=== PATIENT | female | born 1960 | race Caucasian/White ===

== ENCOUNTER 2019-01-31 10:39 | Inpatient (IN) | payer OTHER ==
[~2019-01-31] VITALS: Ht 165.1 cm; Wt 44.5 kg
[~2019-01-31 10:39] MED LIST: ALBUTEROL INHAL17 GM IH; ASPIRIN81 M2 PO; AZITHROMYCIN 2250 MG PO; CALCIUM; CHLORTHALIDONE25 MG PO; LEXAPRO20 MG PO; LOPRESSOR50 PO; MEDROLDOSEPACK PO; SYNTHROID125 MC1 PO; TESSALON PERLE100 MG PO; TRAZODONE HCL50 MG PO; VISTARIL 25 MG25 M1 PO
[2019-02-01 16:27] VITALS: BP 137/62
[2019-02-01 20:01] VITALS: BP 146/78
[2019-02-01 23:01] VITALS: BP 130/59
[2019-02-02] VITALS (24 sets, daily range): BP systolic 125–158; BP diastolic 50–90
[2019-02-02 04:58] LABS: HEMATOCRIT 23.4 % (37.0-47.0); MCH 30.6 pg (26.0-34.0); MCHC 34.1 g/dL (28.0-37.0); MCV 89.7 fL (80.0-100.0); MPV 6.7 fl. (7.2-11.1); NUCLEATED RBCS 0 /100WBC; PLATELET COUNT* 400 thou/uL (150-400); RDW-CV 16.3 % (10.5-14.5); WBC 8.9 thou/uL (4.0-11.0)
[2019-02-02 05:13] LABS: ALBUMIN 1.8 g/dL (3.4-5.0); CALCIUM 8.4 mg/dL (8.5-10.1); CREATININE 0.6 mg/dL (0.6-1.3); MAGNESIUM 1.7 mg/dL (1.8-2.4); POTASSIUM 3.6 mmol/L (3.5-5.1); TOTAL BILIRUBIN 0.9 mg/dL (<0.1-1.0); TOTAL PROTEIN 5.7 g/dL (6.4-8.2)
[2019-02-02 06:43] LABS: ABSOLUTE EOSINOPHILS 0.4 thou/uL (0.0-0.7); ABSOLUTE LYMPHOCYTES 1.2 thou/uL (0.8-5.3); ABSOLUTE MONOCYTES 0.1 thou/uL (0.0-1.2); ABSOLUTE NEUTROPHILS 7.2 thou/uL (1.6-8.1); ATYPICAL LYMPHS 2 %; METAMYELOCYTES 1 %; PLATELET ESTIMATE ADEQUATE
[2019-02-03] VITALS (28 sets, daily range): BP systolic 131–161; BP diastolic 60–94
[2019-02-03 05:13] LABS: HEMATOCRIT 22.7 % (37.0-47.0); HEMOGLOBIN 7.8 gm/dL (12.0-15.0); MCH 30.7 pg (26.0-34.0); MCHC 34.3 g/dL (28.0-37.0); MCV 89.4 fL (80.0-100.0); MPV 6.7 fl. (7.2-11.1); RBC 2.54 mil/uL (4.20-5.00); RDW-CV 16.4 % (10.5-14.5); WBC 8.8 thou/uL (4.0-11.0)
[2019-02-03 05:24] LABS: CALCIUM 8.3 mg/dL (8.5-10.1); CREATININE 0.6 mg/dL (0.6-1.3); MAGNESIUM 1.6 mg/dL (1.8-2.4); POTASSIUM 3.2 mmol/L (3.5-5.1)
--- NOTE | 2019-02-03 10:04 | CON ---
[address] [address] CONSULTATION Name: JACINDA NGO Room: [address] IN M.R.#: [id number] Admission: 02/01/19 Attend Phys: Valentin Howe MD Discharge: Date of : 58 Report #: [id number] THIS REPORT FOR: //name// CC: Ruddy Howe DATE OF SERVICE: 02/02/2019 REQUESTING PHYSICIAN: Dr. Howe. REASON FOR CONSULTATION: Ventilator management on chronic vent. DISCUSSION: The patient is a 58-year-old woman who was readmitted to [facility] yesterday. She had been here last month. She has had a cardiopulmonary arrest. Significant encephalopathy where she was found to have a significant stroke. She was intubated when she was here previously. Was not able to be safely extubated. Due to the lack of ENT coverage at this facility, she subsequently was transferred out to [facility] and that was on 01/23/2019. While she was there, was reevaluated. She subsequently did have a tracheostomy placed. This was on 01/30/2019. She was then transferred back to [facility] yesterday. No PEG was placed. Apparently, intra-abdominal air had been noted. Etiology was not clear, but did not feel that she had a surgical abdomen. No surgery was done. She has been maintained on TPN. Paper records were sent with her. I am unable to access the hospital notes through [facility] at [facility]. Those pulmonary notes do indicate that some weaning trials were underway. However, I am not able to access how long those trials were nor how frequently they were. Blood gases which were noted, though the last one was at least several days ago, did not reveal any hypercapnia and she was oxygenating adequately. She was originally admitted at [facility] on 01/09/2019 with yav-oo-xssxutub cardiopulmonary arrest. She was known to be a smoker, also has a history of alcohol abuse. She probably had some COPD. She did go through the cooling protocol when she was admitted here. After the initial event, she was noted to be fairly encephalopathic. Was not very awake. It was not thought it was safe to extubate her. She also had significant CVA. It is not clear if this was related to her acute hypoxic injury or not. Also, had right groin hematoma. Had a right femoral line in that earlier on. She did require some blood transfusions. Also, had issues with various infections, right groin urinary tract. MEDICATIONS: At this time, her current medications [place] [address] CONSULTATION Name: JACINDA NGO Room: [address] IN M.R.#: [id number] Admission: 02/01/19 Attend Phys: Valentin Howe MD Discharge: Date of : 58 Report #: [id number] for supplementation per protocol, Protonix, Synthroid, metoprolol q. 6h., TPN, Lipitor if able to give by tube, DuoNeb q.i.d. and p.r.n. Ativan. She is on no continuous sedations. SOCIAL HISTORY: History of smoking. FAMILY HISTORY: Unable to obtain any family history given her condition. REVIEW OF SYSTEMS: Unable to obtain from the patient given her condition. PHYSICAL EXAMINATION: GENERAL APPEARANCE: An obese woman. She is in the ICU, has a tracheostomy tube in place and is on the ventilator. Her eyes are open. Not consistently tracking. Would not follow any commands for me. HEENT: Her right hand is grasping a tube. Some intermittent movement of her left arm. Mucous membranes look moist. Tracheostomy tube is in place. HEART: Regular. She is mildly tachycardic. LUNGS: Sounds are fairly clear. Excursion is equal. ABDOMEN: Obese, but soft. Does not appear to have any guarding or rebound. No definite hepatosplenomegaly. Does have evidence of a resolving hematoma over the right groin area. This also involves the upper right thigh area. EXTREMITIES: She has trace to 1+ edema. LABORATORY AND X-RAY FINDINGS: No recent blood gases done here at [facility]. Those were reviewed from [facility]. No hypercapnia. White blood cell count this morning 8900, hemoglobin 8.0, hematocrit 23.4, platelets 400,000. Her chemistry, BUN is 22, creatinine 0.6, potassium 3.6. Albumin 1.8. IMPRESSION: 1. Respiratory failure. Intubated initially due to aiq-nx-slgfnvrj cardiac arrest. Significant encephalopathy and cerebrovascular accident. Was not weanable and now status post trach placement. It is not clear to me how well her weaning trials have been going recently at [facility]. 2. Status post cardiopulmonary arrest. 3. Right groin hematoma. I believe it was related to art line which was placed there at the time of her initial admission. 4. Obesity. 5. Anemia, which has intermittently required transfusions. 6. Prior urinary tract infections. 7. Free intra-abdominal air. Clinically, does not have a surgical abdomen. 8. Overall long-term prognosis appears guarded. RECOMMENDATIONS: 1. We will resume weaning trials. We will push for an hour daily and assess tolerance. 2. Continue the DuoNeb. [address] [address] CONSULTATION Name: JACINDA NGO Room: [facility] IN .R.#: [id number] Admission: 02/01/19 Attend Phys: Valentin Howe MD Discharge: Date of : 58 Report #: [id number] 3. I will need to have a feeding addressed. Has no NG or OG tube in place. Consider Dobbhoff if surgery feels it is safe to resume enteral feedings. At some point, may need PEG tube. 4. Therapy as tolerated. <ELECTRONICALLY SIGNED> By: Viola Villalobos MD 02/03/19 1004 1134 [id number] Villalobos MD /nt
[2019-02-04] VITALS (29 sets, daily range): BP systolic 120–162; BP diastolic 57–91
[2019-02-04 05:11] LABS: HEMATOCRIT 22.6 % (37.0-47.0); HEMOGLOBIN 7.8 gm/dL (12.0-15.0); MCHC 34.5 g/dL (28.0-37.0); MCV 89.8 fL (80.0-100.0); MPV 6.6 fl. (7.2-11.1); RBC 2.52 mil/uL (4.20-5.00); RDW-CV 16.8 % (10.5-14.5); WBC 8.9 thou/uL (4.0-11.0)
[2019-02-04 05:44] LABS: CALCIUM 8.3 mg/dL (8.5-10.1); CREATININE 0.7 mg/dL (0.6-1.3); MAGNESIUM 1.8 mg/dL (1.8-2.4); POTASSIUM 3.8 mmol/L (3.5-5.1)
[2019-02-04 10:10] LABS: MAGNESIUM 1.5 mg/dL (1.8-2.4); PHOSPHORUS* 3.4 mg/dL (2.5-4.9); TROPONIN-I LEVEL <0.06 ng/mL (<0.06)
[2019-02-04 17:12] LABS: MAGNESIUM 1.7 mg/dL (1.8-2.4); POTASSIUM 3.5 mmol/L (3.5-5.1)
[2019-02-05] VITALS (32 sets, daily range): BP systolic 122–163; BP diastolic 62–89
[2019-02-05 03:25] LABS: HEMATOCRIT 24.8 % (37.0-47.0); HEMOGLOBIN 8.4 gm/dL (12.0-15.0); MCH 30.3 pg (26.0-34.0); MCV 89.2 fL (80.0-100.0); MPV 6.4 fl. (7.2-11.1); RBC 2.78 mil/uL (4.20-5.00); RDW-CV 16.6 % (10.5-14.5); WBC 9.7 thou/uL (4.0-11.0)
[2019-02-05 03:41] LABS: CALCIUM 8.5 mg/dL (8.5-10.1); CREATININE 0.6 mg/dL (0.6-1.3); MAGNESIUM 1.7 mg/dL (1.8-2.4); POTASSIUM 4.1 mmol/L (3.5-5.1)
--- NOTE | 2019-02-05 12:43 | EKG ---
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 : 1960 Requested By: William Andersen Order Number: [id number] Reading MD: Paul Hernandez Measurements Intervals [place] Rate: 81 P: 81 VA: 153 QRS: 64 QRSD: 101 T: 70 QT: 354 QTc: 411 Interpretive Statements Sinus rhythm Multiple premature complexes, vent & supraven Low voltage, precordial leads RSR' in V1 or V2, probably normal variant Nonspecific T abnormalities, anterior leads Compared to ECG 01/20/2019 09:08:12 T-wave abnormality now present Electronically Signed On 02-05-2019 12:42:49 CDT by Paul Hernandez [email or web address] <ELECTRONICALLY SIGNED> By: Paul Hernandez MD, FAC 02/05/19 1242 0927 0927 Paul Hernandez MD, FAC /EPI
--- NOTE | 2019-02-05 17:34 | EKG ---
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 : 1960 Requested By: Valentin Howe Order Number: [id number] Reading MD: Tino Quarles Measurements Intervals [place] Rate: 145 P: 53 IN: 164 QRS: 46 QRSD: 101 T: 62 QT: 326 QTc: 507 Interpretive Statements Atrial fibrillation Paired ventricular premature complexes Low voltage, precordial leads RSR' in V1 or V2, right VCD or RVH Prolonged QT interval Compared to ECG 01/20/2019 09:08:12 Ventricular premature complex(es) now present Prolonged QT interval now present Sinus rhythm no longer present Electronically Signed On 02-05-2019 17:34:33 CDT by Tino Quarles [email or web address] <ELECTRONICALLY SIGNED> By: Tino Quarles MD, FAC 02/05/19 1734 0954 0954 Tino Quarles MD, [facility] /EPI
[2019-02-06] VITALS (25 sets, daily range): BP systolic 123–163; BP diastolic 62–112
[2019-02-06 04:37] LABS: CALCIUM 8.2 mg/dL (8.5-10.1); CREATININE 0.6 mg/dL (0.6-1.3); MAGNESIUM 1.5 mg/dL (1.8-2.4); POTASSIUM 3.6 mmol/L (3.5-5.1)
[2019-02-07] VITALS (22 sets, daily range): BP systolic 132–166; BP diastolic 57–89
[2019-02-07 05:28] LABS: HEMATOCRIT 25.4 % (37.0-47.0); HEMOGLOBIN 8.7 gm/dL (12.0-15.0); MCH 30.3 pg (26.0-34.0); MCHC 34.3 g/dL (28.0-37.0); MCV 88.5 fL (80.0-100.0); MPV 6.8 fl. (7.2-11.1); RBC 2.87 mil/uL (4.20-5.00); RDW-CV 16.9 % (10.5-14.5)
[2019-02-07 06:04] LABS: CALCIUM 8.4 mg/dL (8.5-10.1); CREATININE 0.6 mg/dL (0.6-1.3); MAGNESIUM 1.5 mg/dL (1.8-2.4); POTASSIUM 3.5 mmol/L (3.5-5.1)
[2019-02-07 15:33] LABS: MAGNESIUM 1.7 mg/dL (1.8-2.4); PHOSPHORUS* 3.9 mg/dL (2.5-4.9); POTASSIUM 3.5 mmol/L (3.5-5.1)
[2019-02-07 21:22] LABS: MAGNESIUM 1.9 mg/dL (1.8-2.4); POTASSIUM 3.8 mmol/L (3.5-5.1)
[2019-02-08] VITALS (17 sets, daily range): BP systolic 114–149; BP diastolic 45–77
[2019-02-08 05:55] LABS: CALCIUM 8.4 mg/dL (8.5-10.1); CREATININE 0.6 mg/dL (0.6-1.3); MAGNESIUM 1.6 mg/dL (1.8-2.4); POTASSIUM 3.7 mmol/L (3.5-5.1)
[2019-02-08 15:43] LABS: MAGNESIUM 1.6 mg/dL (1.8-2.4); POTASSIUM 3.5 mmol/L (3.5-5.1)
[2019-02-09] VITALS (24 sets, daily range): BP systolic 118–165; BP diastolic 55–96
[2019-02-09 04:16] LABS: HEMOGLOBIN 8.8 gm/dL (12.0-15.0); MCHC 35.2 g/dL (28.0-37.0); MCV 88.2 fL (80.0-100.0); MPV 6.6 fl. (7.2-11.1); RBC 2.83 mil/uL (4.20-5.00); RDW-CV 16.7 % (10.5-14.5); WBC 8.8 thou/uL (4.0-11.0)
[2019-02-09 04:31] LABS: ALBUMIN 2.3 g/dL (3.4-5.0); APTT 26.2 Seconds (25.0-31.3); CALCIUM 8.4 mg/dL (8.5-10.1); CREATININE 0.6 mg/dL (0.6-1.3); MAGNESIUM 1.8 mg/dL (1.8-2.4); PHOSPHORUS* 3.6 mg/dL (2.5-4.9); PROTIME 10.4 Seconds (9.20-11.50); TOTAL BILIRUBIN 0.9 mg/dL (<0.1-1.0); TOTAL PROTEIN 6.2 g/dL (6.4-8.2)
[2019-02-10 04:15] LABS: HEMATOCRIT 26.1 % (37.0-47.0); HEMOGLOBIN 8.9 gm/dL (12.0-15.0); MCHC 34.2 g/dL (28.0-37.0); MCV 87.8 fL (80.0-100.0); MPV 6.8 fl. (7.2-11.1); RBC 2.97 mil/uL (4.20-5.00); RDW-CV 16.5 % (10.5-14.5); WBC 11.3 thou/uL (4.0-11.0)
[2019-02-10 04:30] VITALS: BP 151/77
[2019-02-10 04:49] LABS: CALCIUM 8.4 mg/dL (8.5-10.1); CREATININE 0.7 mg/dL (0.6-1.3); MAGNESIUM 1.6 mg/dL (1.8-2.4); POTASSIUM 3.6 mmol/L (3.5-5.1)
--- NOTE | 2019-02-10 20:52 | OP ---
[facility] [address] [place] [address] OPERATIVE REPORT Name: JACINDA NGO Room: [address] IN .R.#: [id number] Admission: 02/01/19 Attend Phys: Valentin Howe MD Discharge: Date of : 58 Report #: [id number] THIS REPORT FOR: //name// CC: Ruddy Howe DATE OF SERVICE: 02/09/2019 PREOPERATIVE DIAGNOSIS: Need for enteral access. POSTOPERATIVE DIAGNOSIS: Need for enteral access. PROCEDURE: Laparoscopic converted to open gastrostomy. SURGEON: Jones Pride M.D. ANESTHESIA: General. ESTIMATED BLOOD LOSS: Minimal. SPECIMENS: None. DESCRIPTION OF PROCEDURE: After informed consent was obtained, the patient was brought to the operating room, placed supine. SCDs were placed and working. Preoperative antibiotics were administered, general anesthesia was induced. The abdomen was prepped and draped in the usual sterile fashion. I began by inserting a 5 mm scope under direct vision in the left upper quadrant. Pneumoperitoneum was established. A supraumbilical 8 mm trocar was placed, and in the right upper quadrant, 5 mm port was placed. I was able to cannulate the stomach; however, the wire would not thread. I therefore elected to perform open gastrostomy. Epigastric incision was made. Cautery dissection was made down through the fascia. The stomach was identified. The gastrostomy tube was then brought in through the left upper quadrant of the abdomen. I then made a gastrostomy. A 16-Latvian gastrostomy was placed into the gastrotomy. It was secured with a T-bar from the laparoscopic kit. There was a defect in the back wall of the stomach measuring approximately 2 mm. This was closed with interrupted 3-0 Vicryl in an interrupted fashion and imbricated with 3-0 silk pop offs. The gastrostomy was then brought up to the abdominal wall. The T-bar was then fastened down and the balloon was inflated. The fascia was then closed with a running 0 PDS in running fashion. Skin was [place] [address] OPERATIVE REPORT Name: JACINDA NGO Room: [address] IN [facility]#: [id number] Admission: 02/01/19 Attend Phys: Valentin Howe MD Discharge: Date of : 58 Report #: [id number] dressings were applied. COMPLICATIONS: None. DISPOSITION: The patient was taken to recovery in satisfactory condition. <ELECTRONICALLY SIGNED> By: Jones Pride MD 02/10/192051 1728 10Jostephanie Pride MD /nt
[2019-02-11] VITALS (64 sets, daily range): BP systolic 82–155; BP diastolic 38–84
[2019-02-11 00:47] LABS: URINE BILIRUBIN NEGATIVE (Negative); URINE BLOOD NEGATIVE (Negative); URINE CLARITY CLEAR; URINE COLOR YELLOW; URINE GLUCOSE-RANDOM NEGATIVE (Negative); URINE KETONES NEGATIVE (Negative); URINE LEUKOCYTES NEGATIVE (Negative); URINE NITRITE NEGATIVE (Negative); URINE PROTEIN TRACE (Negative); URINE SPECIFIC GRAVITY 1.015 (1.005-1.030); URINE UROBILINOGEN 0.2 E.U./dl (0.2-1.0)
[2019-02-11 10:27] LABS: HEMOGLOBIN 8.9 gm/dL (12.0-15.0); MCH 30.1 pg (26.0-34.0); MCHC 34.2 g/dL (28.0-37.0); MCV 88.1 fL (80.0-100.0); NUCLEATED RBCS 0 /100WBC; PLATELET COUNT* 367 thou/uL (150-400); RBC 2.95 mil/uL (4.20-5.00); RDW-CV 16.2 % (10.5-14.5); WBC 11.5 thou/uL (4.0-11.0)
[2019-02-11 10:42] LABS: ALBUMIN 2.2 g/dL (3.4-5.0); CALCIUM 8.2 mg/dL (8.5-10.1); CREATININE 0.7 mg/dL (0.6-1.3); POTASSIUM 3.4 mmol/L (3.5-5.1); TOTAL BILIRUBIN 0.8 mg/dL (<0.1-1.0); TOTAL PROTEIN 6.4 g/dL (6.4-8.2)
[2019-02-11 11:18] LABS: ABSOLUTE LYMPHOCYTES 1.7 thou/uL (0.8-5.3); ABSOLUTE MONOCYTES 0.6 thou/uL (0.0-1.2); ABSOLUTE NEUTROPHILS 8.2 thou/uL (1.6-8.1); PLATELET ESTIMATE ADEQUATE
[2019-02-11 11:19] LABS: ANISOCYTOSIS Occasional
[2019-02-11 11:43] LABS: ESR (SEDRATE) 112 mm/hr (0-30)
--- NOTE | 2019-02-11 12:21 | CON ---
[address] [address] CONSULTATION Name: JACINDA NGO Room: [address] IN .R.#: [id number] Admission: 02/01/19 Attend Phys: Valentin Howe MD Discharge: Date of : 58 Report #: [id number] THIS REPORT FOR: //name// CC: Ruddy Howe CARDIOLOGY CONSULTATION INDICATION: Cardiac arrhythmia. HISTORY OF PRESENT ILLNESS: The patient is a 58-year-old white female who has had a prolonged hospital course. She was originally admitted to this institution on 01/09/2019 with an ydm-hl-qadmyxkv cardiac arrest. The patient was found to be in ventricular fibrillation. She was resuscitated in the field and brought to the hospital. She underwent cooling protocol. She had very slow progression, with minimal improvement. She was noted by CT scan of the head several days later to have had a right-sided stroke. During that initial hospitalization here at [facility], she did have elevation of her troponin to approximately 17, consistent with a non-ST elevation myocardial infarction. She has not undergone further cardiac evaluation, with the exception of an echocardiogram that showed an ejection fraction of 70%. She also developed some paroxysmal atrial fibrillation during that initial hospitalization and was placed on sotalol, with prompt resolution of her arrhythmia. After a prolonged hospitalization here, she was transferred to [facility] on 01/23/2019. At that hospital, she underwent tracheostomy placement for prolonged ventilation. The patient was returned to our hospital on 02/01/2019. She has had a PEG tube placed here for feeding. She is tolerating tube feedings. Presently, she appears to be awake and alert. She answers simple questions a with head nod. She does not follow commands very well. She remains on the ventilator. During her hospitalization at outside hospital, sotalol was discontinued in favor of metoprolol. She is now having some premature atrial contractions and occasional episodes of nonsustained supraventricular tachycardia. She remains hemodynamically stable. PAST MEDICAL HISTORY: 1. Yrb-gy-moxxnmjm arrest, as outlined above. 2. Status post tracheostomy and PEG tube placement for long-term care. 3. Non-ST elevation myocardial infarction. 4. Echocardiogram that shows EF of 70%. 5. Paroxysmal atrial fibrillation. 6. Hypertension. 7. Hypothyroidism. 8. History of hyponatremia. 9. History of alcoholism. FAMILY HISTORY: [place] [address] CONSULTATION Name: JACINDA NGO Room: [address]#: [id number] Admission: 02/01/19 Attend Phys: Valentin Howe MD Discharge: Date of : 58 Report #: [id number] REVIEW OF SYSTEMS: Not obtainable. PHYSICAL EXAMINATION: VITAL SIGNS: Appear stable. Blood pressure 137/72 and heart rate 102, sinus rhythm with PACs. HEENT: Head is normocephalic, atraumatic. Extraocular muscles intact. Mucous membranes are moist. NECK: Examination of the neck shows tracheostomy in place. Neck is thick. CHEST: Clear anteriorly. CARDIAC EXAMINATION: Regular rhythm, without gallop or murmur. ABDOMEN: Examination of the abdomen reveals positive bowel sounds. The abdomen is soft. EXTREMITIES: Examination of the extremities shows trace edema. LABORATORY DATA: Most recent EKG shows sinus rhythm with premature ventricular contractions. There is an incomplete right bundle branch block. There are no acute ST or T-wave abnormalities. IMPRESSION AND RECOMMENDATIONS: 1. Atrial arrhythmias, presently stable. I am switching her back to sotalol. We would recommend long-term anticoagulation with Eliquis 5 mg b.i.d. as she does have a history of paroxysmal atrial fibrillation. 2. Recent nrr-PU-wzptzzatw myocardial infarction. At this point, further workup has not been obtained, with the exception of an echocardiogram. If she were to regain significant clinical stability, would consider possibly doing outpatient stress testing. That would be obviously further down the road. 3. Underlying coronary artery disease, presently stable. Continue conservative management at this point in time. 4. History of cerebrovascular accident. Recommend anticoagulation as her CHADS score is at least 4. 5. Chronic respiratory failure, presently on a ventilator with tracheostomy in place. Weaning per Pulmonology. 6. Fvztf-mk-yhzikds renal insufficiency, per primary physician. <ELECTRONICALLY SIGNED> By: Tino Quarles MD, FACC 02/11/19 1221 1324 0039Tino Quarles MD, FACC /nt
[2019-02-12] VITALS (49 sets, daily range): BP systolic 111–157; BP diastolic 44–95
[2019-02-13] VITALS (19 sets, daily range): BP systolic 106–149; BP diastolic 53–75
[2019-02-13 05:20] LABS: HEMATOCRIT 25.7 % (37.0-47.0); HEMOGLOBIN 8.9 gm/dL (12.0-15.0); MCH 30.8 pg (26.0-34.0); MCHC 34.7 g/dL (28.0-37.0); MCV 88.8 fL (80.0-100.0); RBC 2.89 mil/uL (4.20-5.00); RDW-CV 16.3 % (10.5-14.5)
[2019-02-13 05:45] LABS: ALBUMIN 2.3 g/dL (3.4-5.0); CALCIUM 8.1 mg/dL (8.5-10.1); CREATININE 0.8 mg/dL (0.6-1.3); MAGNESIUM 1.2 mg/dL (1.8-2.4); TOTAL BILIRUBIN 0.7 mg/dL (<0.1-1.0); TOTAL PROTEIN 6.5 g/dL (6.4-8.2)
[2019-02-13 05:48] LABS: POTASSIUM 3.4 mmol/L (3.5-5.1)
[2019-02-13 16:10] LABS: MAGNESIUM 2.8 mg/dL (1.8-2.4); POTASSIUM 3.6 mmol/L (3.5-5.1)
[2019-02-14] VITALS (19 sets, daily range): BP systolic 99–151; BP diastolic 42–75
[2019-02-14 04:48] LABS: HEMATOCRIT 24.9 % (37.0-47.0); HEMOGLOBIN 8.6 gm/dL (12.0-15.0); MCH 30.6 pg (26.0-34.0); MCHC 34.4 g/dL (28.0-37.0); MCV 88.9 fL (80.0-100.0); MPV 7.1 fl. (7.2-11.1); RBC 2.8 mil/uL (4.20-5.00); RDW-CV 16.3 % (10.5-14.5); WBC 11.2 thou/uL (4.0-11.0)
[2019-02-14 04:53] LABS: CALCIUM 8.3 mg/dL (8.5-10.1); CREATININE 0.8 mg/dL (0.6-1.3); POTASSIUM 3.6 mmol/L (3.5-5.1)
[2019-02-15] VITALS (14 sets, daily range): BP systolic 97–159; BP diastolic 60–86
[2019-02-15 03:57] LABS: ALBUMIN 2.4 g/dL (3.4-5.0); CALCIUM 8.4 mg/dL (8.5-10.1); CREATININE 0.8 mg/dL (0.6-1.3); MAGNESIUM 1.8 mg/dL (1.8-2.4); POTASSIUM 3.6 mmol/L (3.5-5.1); TOTAL BILIRUBIN 0.6 mg/dL (<0.1-1.0); TOTAL PROTEIN 6.5 g/dL (6.4-8.2)
[2019-02-15 07:24] LABS: HEMATOCRIT 26.2 % (37.0-47.0); HEMOGLOBIN 8.6 gm/dL (12.0-15.0); MCH 29.2 pg (26.0-34.0); MCHC 32.7 g/dL (28.0-37.0); MCV 89.3 fL (80.0-100.0); MPV 6.7 fl. (7.2-11.1); NUCLEATED RBCS 0 /100WBC; PLATELET COUNT* 405 thou/uL (150-400); RBC 2.94 mil/uL (4.20-5.00); RDW-CV 16.7 % (10.5-14.5)
[2019-02-15 07:25] LABS: ABSOLUTE BASOPHILS 0.2 thou/uL (0.0-0.2); ABSOLUTE EOSINOPHILS 0.9 thou/uL (0.0-0.7); ABSOLUTE LYMPHOCYTES 1.7 thou/uL (0.8-5.3); ABSOLUTE MONOCYTES 0.7 thou/uL (0.0-1.2); ABSOLUTE NEUTROPHILS 7.6 thou/uL (1.6-8.1); METAMYELOCYTES 2 %
[2019-02-15 07:26] LABS: MICROCYTES 1+; PLATELET ESTIMATE ADEQUATE
[2019-02-15 07:27] LABS: HYPOCHROMASIA 1+
[2019-02-16] VITALS (22 sets, daily range): BP systolic 111–170; BP diastolic 61–81
[2019-02-16 03:48] LABS: HEMATOCRIT 26.3 % (37.0-47.0); HEMOGLOBIN 8.6 gm/dL (12.0-15.0); MCH 29.4 pg (26.0-34.0); MCHC 32.8 g/dL (28.0-37.0); MCV 89.5 fL (80.0-100.0); MPV 6.9 fl. (7.2-11.1); RBC 2.94 mil/uL (4.20-5.00); RDW-CV 16.3 % (10.5-14.5); WBC 11.4 thou/uL (4.0-11.0)
[2019-02-16 03:53] LABS: CALCIUM 8.8 mg/dL (8.5-10.1); CREATININE 0.7 mg/dL (0.6-1.3); MAGNESIUM 1.5 mg/dL (1.8-2.4); POTASSIUM 3.4 mmol/L (3.5-5.1)
[2019-02-16 12:48] LABS: MAGNESIUM 1.9 mg/dL (1.8-2.4); POTASSIUM 3.7 mmol/L (3.5-5.1)
[2019-02-17] VITALS (22 sets, daily range): BP systolic 118–156; BP diastolic 51–88
[2019-02-17 04:27] LABS: HEMATOCRIT 26.4 % (37.0-47.0); HEMOGLOBIN 8.6 gm/dL (12.0-15.0); MCH 29.4 pg (26.0-34.0); MCHC 32.7 g/dL (28.0-37.0); MCV 89.8 fL (80.0-100.0); MPV 7.2 fl. (7.2-11.1); RBC 2.94 mil/uL (4.20-5.00); RDW-CV 16.6 % (10.5-14.5); WBC 11.3 thou/uL (4.0-11.0)
[2019-02-17 06:26] LABS: ALBUMIN 2.5 g/dL (3.4-5.0); CALCIUM 8.6 mg/dL (8.5-10.1); CREATININE 0.7 mg/dL (0.6-1.3); MAGNESIUM 1.7 mg/dL (1.8-2.4); POTASSIUM 3.7 mmol/L (3.5-5.1); TOTAL BILIRUBIN 0.7 mg/dL (<0.1-1.0); TOTAL PROTEIN 6.6 g/dL (6.4-8.2)
[2019-02-18] VITALS (18 sets, daily range): BP systolic 134–157; BP diastolic 70–84
[2019-02-18 04:24] LABS: HEMATOCRIT 26.2 % (37.0-47.0); HEMOGLOBIN 8.7 gm/dL (12.0-15.0); MCH 29.8 pg (26.0-34.0); MCHC 33.1 g/dL (28.0-37.0); MPV 6.7 fl. (7.2-11.1); RBC 2.91 mil/uL (4.20-5.00); RDW-CV 16.6 % (10.5-14.5); WBC 9.9 thou/uL (4.0-11.0)
[2019-02-18 04:50] LABS: ALBUMIN 2.4 g/dL (3.4-5.0); CALCIUM 7.9 mg/dL (8.5-10.1); CREATININE 0.7 mg/dL (0.6-1.3); POTASSIUM 3.6 mmol/L (3.5-5.1); TOTAL BILIRUBIN 0.5 mg/dL (<0.1-1.0); TOTAL PROTEIN 6.6 g/dL (6.4-8.2)
[2019-02-19] VITALS (25 sets, daily range): BP systolic 137–179; BP diastolic 70–94
[2019-02-19 05:35] LABS: CALCIUM 8.7 mg/dL (8.5-10.1); CREATININE 0.6 mg/dL (0.6-1.3); MAGNESIUM 1.3 mg/dL (1.8-2.4); PHOSPHORUS* 3.8 mg/dL (2.5-4.9); POTASSIUM 3.6 mmol/L (3.5-5.1)
[2019-02-20] VITALS (19 sets, daily range): BP systolic 124–160; BP diastolic 63–80
[2019-02-21] VITALS (17 sets, daily range): BP systolic 138–158; BP diastolic 67–87
[2019-02-21 05:18] LABS: HEMATOCRIT 26.6 % (37.0-47.0); HEMOGLOBIN 9.3 gm/dL (12.0-15.0); MCH 31.3 pg (26.0-34.0); MCHC 34.9 g/dL (28.0-37.0); MCV 89.7 fL (80.0-100.0); MPV 7.2 fl. (7.2-11.1); RBC 2.97 mil/uL (4.20-5.00); RDW-CV 16.3 % (10.5-14.5); WBC 10.4 thou/uL (4.0-11.0)
[2019-02-21 05:35] LABS: CALCIUM 8.8 mg/dL (8.5-10.1); CREATININE 0.6 mg/dL (0.6-1.3); MAGNESIUM 1.5 mg/dL (1.8-2.4); POTASSIUM 3.5 mmol/L (3.5-5.1)
[2019-02-22] VITALS (20 sets, daily range): BP systolic 149–174; BP diastolic 68–86
[2019-02-22 05:05] LABS: HEMOGLOBIN 9.4 gm/dL (12.0-15.0); MCH 29.9 pg (26.0-34.0); MCHC 33.4 g/dL (28.0-37.0); MCV 89.5 fL (80.0-100.0); MPV 6.6 fl. (7.2-11.1); RBC 3.13 mil/uL (4.20-5.00); RDW-CV 16.8 % (10.5-14.5); WBC 9.8 thou/uL (4.0-11.0)
[2019-02-22 05:23] LABS: CALCIUM 8.8 mg/dL (8.5-10.1); CREATININE 0.5 mg/dL (0.6-1.3); MAGNESIUM 1.7 mg/dL (1.8-2.4); POTASSIUM 3.6 mmol/L (3.5-5.1)
[2019-02-23] VITALS (18 sets, daily range): BP systolic 122–169; BP diastolic 71–90
[2019-02-24] VITALS (12 sets, daily range): BP systolic 116–161; BP diastolic 56–88
[2019-02-25] VITALS (9 sets, daily range): BP systolic 133–153; BP diastolic 70–82
[2019-02-26] VITALS (8 sets, daily range): BP systolic 144–176; BP diastolic 70–98
[2019-02-26 05:17] LABS: HEMATOCRIT 27.9 % (37.0-47.0); HEMOGLOBIN 9.2 gm/dL (12.0-15.0); MCH 29.7 pg (26.0-34.0); MPV 6.8 fl. (7.2-11.1); RBC 3.1 mil/uL (4.20-5.00); RDW-CV 16.5 % (10.5-14.5); WBC 9.7 thou/uL (4.0-11.0)
[2019-02-26 05:32] LABS: ALBUMIN 2.7 g/dL (3.4-5.0); CALCIUM 8.8 mg/dL (8.5-10.1); CREATININE 0.5 mg/dL (0.6-1.3); MAGNESIUM 1.3 mg/dL (1.8-2.4); POTASSIUM 3.6 mmol/L (3.5-5.1); TOTAL BILIRUBIN 0.5 mg/dL (<0.1-1.0); TOTAL PROTEIN 6.9 g/dL (6.4-8.2)
[2019-02-26 10:37] LABS: URINE BILIRUBIN NEGATIVE (Negative); URINE BLOOD 3+ (Negative); URINE CLARITY CLEAR; URINE COLOR BROWN; URINE GLUCOSE-RANDOM NEGATIVE (Negative); URINE KETONES TRACE (Negative); URINE LEUKOCYTES-REFLEX NEGATIVE (Negative); URINE NITRITE-REFLEX NEGATIVE (Negative); URINE PROTEIN 1+ (Negative); URINE SPECIFIC GRAVITY >= 1.030 (1.005-1.030); URINE UROBILINOGEN 0.2 E.U./dl (0.2-1.0)
[2019-02-26 10:49] LABS: SQUAMOUS NONE SEEN /LPF (0-3)
[2019-02-26 10:50] LABS: BACTERIA-REFLEX None Seen /HPF (None Seen); CASTS None Seen /LPF (None Seen); CRYSTALS None Seen /LPF (None Seen); MUCUS 4-6 Moderate strn/LPF (None Seen); URINE RBC >20 Many /HPF (0-2); YEAST-REFLEX Present (None Seen)
[2019-02-27 09:39] VITALS: BP 155/72
[2019-02-28] VITALS (7 sets, daily range): BP systolic 138–165; BP diastolic 67–95
[2019-03-01] VITALS (9 sets, daily range): BP systolic 141–158; BP diastolic 71–87
[2019-03-02 08:00] VITALS: BP 147/76
[2019-03-02 11:33] LABS: HEMATOCRIT 28.1 % (37.0-47.0); HEMOGLOBIN 9.7 gm/dL (12.0-15.0); MCH 30.8 pg (26.0-34.0); MCHC 34.4 g/dL (28.0-37.0); MCV 89.5 fL (80.0-100.0); MPV 7.4 fl. (7.2-11.1); RBC 3.14 mil/uL (4.20-5.00); RDW-CV 15.9 % (10.5-14.5); WBC 9.2 thou/uL (4.0-11.0)
[2019-03-02 11:44] LABS: ALBUMIN 2.8 g/dL (3.4-5.0); CREATININE 0.6 mg/dL (0.6-1.3); MAGNESIUM 1.2 mg/dL (1.8-2.4); TOTAL BILIRUBIN 0.5 mg/dL (<0.1-1.0); TOTAL PROTEIN 7.4 g/dL (6.4-8.2)
[2019-03-02 12:58] VITALS: BP 162/75
[2019-03-02 15:49] VITALS: BP 155/86
[2019-03-02 19:45] VITALS: BP 163/90
[2019-03-03] VITALS (10 sets, daily range): BP systolic 124–147; BP diastolic 64–95
[2019-03-03 05:11] LABS: POTASSIUM 3.5 mmol/L (3.5-5.1)
[2019-03-04] VITALS: BP 124/69; BP 160/63
[2019-03-04 04:00] VITALS: BP 157/80
[2019-03-04 08:00] VITALS: BP 149/75
[2019-03-04 12:00] VITALS: BP 165/85
[2019-03-04 16:58] LABS: ABSOLUTE LYMPHOCYTES 1.2 thou/uL (0.8-5.3); ABSOLUTE MONOCYTES 0.4 thou/uL (0.0-1.2); ABSOLUTE NEUTROPHILS 7.4 thou/uL (1.6-8.1); BASOPHILS 0.4 %; EOSINOPHILS 0.1 %; HEMOGLOBIN 10.9 gm/dL (12.0-15.0); LYMPHOCYTES 13.2 %; MCH 30.2 pg (26.0-34.0); MCHC 34.1 g/dL (28.0-37.0); MCV 88.8 fL (80.0-100.0); MONOCYTES 4.4 %; MPV 6.5 fl. (7.2-11.1); NUCLEATED RBCS 0 /100WBC; POLYS 81.9 %; RBC 3.61 mil/uL (4.20-5.00); RDW-CV 15.8 % (10.5-14.5); WBC 9.1 thou/uL (4.0-11.0)
[2019-03-04 16:59] LABS: PLATELET COUNT* 446 thou/uL (150-400)
[2019-03-04 17:15] LABS: CALCIUM 10.1 mg/dL (8.5-10.1); CREATININE 0.8 mg/dL (0.6-1.3); POTASSIUM 4.7 mmol/L (3.5-5.1); TOTAL BILIRUBIN 0.5 mg/dL (<0.1-1.0); TOTAL PROTEIN 8.2 g/dL (6.4-8.2)
[2019-03-05 00:44] VITALS: BP 167/91
[2019-03-05 04:51] VITALS: BP 169/93
[2019-03-05 09:03] VITALS: BP 153/81
[2019-03-05 11:30] VITALS: BP 149/73
--- NOTE | 2019-03-05 13:45 | EKG ---
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
[2019-03-05 16:00] VITALS: BP 163/79
[2019-03-06 00:35] VITALS: BP 145/63
[2019-03-06 04:00] VITALS: BP 135/60
[2019-03-06 07:45] VITALS: BP 144/66
[2019-03-06 12:19] VITALS: BP 121/60
[2019-03-06 15:49] VITALS: BP 145/79
[2019-03-07] VITALS: BP 124/61
[2019-03-07 04:00] VITALS: BP 145/75
[2019-03-07 08:00] VITALS: BP 137/55
[2019-03-07 08:30] VITALS: BP 141/64
[2019-03-07 15:13] VITALS: BP 132/66
--- NOTE | 2019-03-07 17:19 | CON ---
[address] [address] CONSULTATION Name: LACYCHIRAGPHAMJACINDA J Room: [address] IN .#: [id number] Admission: 02/01/19 Attend Phys: Valentin Howe MD Discharge: Date of : 58 Report #: [id number] THIS REPORT FOR: //name// CC: Ruddy Howe DATE OF SERVICE: 03/06/2019 UROLOGY CONSULT NOTE REFERRING PHYSICIAN: Maik Paige M.D. CONSULTING PHYSICIAN: Jacques Villarreal M.D. REASON FOR CONSULTATION: Urinary retention. HISTORY OF PRESENT ILLNESS: This is a 58-year-old female who suffered cardiac arrest back in December. She subsequently was found to have had a stroke. She has been in the hospital and quite ill for several months. She is unable to relate any significant past medical history. She responds verbally, but only intermittently. She currently has a tracheostomy and has had a Trinh catheter until yesterday. Her catheter was removed and since that time has been only voiding small amounts. She has had to be straight catheterized at least once and her most recent postvoid residual was over 500 mL. Prior urologic history is unknown. REVIEW OF SYSTEMS: Unobtainable. FAMILY HISTORY: Unobtainable. PAST MEDICAL HISTORY: Reviewed from the chart, anemia, atrial fibrillation, cardiac arrest, ischemic cardiovascular event, non-STEMI, tobacco use. ALLERGIES: SULFA. MEDICATIONS: Aspirin, diltiazem, prednisone, Synthroid, sotalol, Lipitor, Eliquis, albuterol, lansoprazole, potassium chloride, morphine, lorazepam, hydralazine, and Tylenol. PHYSICAL EXAMINATION: VITAL SIGNS: Temperature is 36.8, pulse rate 72, respiratory rate 16, blood pressure 145/79. GENERAL: She is alert and awake, but not oriented and does not respond appropriately. HEENT: Normocephalic, [place] [address] CONSULTATION Name: JACINDA NGO Room: [address] IN [facility].#: [id number] Admission: 02/01/19 Attend Phys: Valentin Howe MD Discharge: Date of : 58 Report #: [id number] NECK: She does have a tracheostomy in place with oxygen per trach. LUNGS: Nonlabored breathing. She is sitting upright in her chair area. CARDIOVASCULAR: Heart rate, regular rate and rhythm. ABDOMEN: Soft, nontender, nondistended. BACK: No CVA tenderness. EXTREMITIES: She does have reduced movement in all 4 extremities. It is difficult to tell if this is voluntary or involuntary. LABORATORY DATA: White count 9.1, hemoglobin 10.9. Sodium 134, potassium 4.7, BUN 26, creatinine 0.8. ASSESSMENT AND PLAN: 1. Acute urinary retention. 2. Likely multifactorial due to recent cardiac and cerebrovascular accident. The patient is still recovering and quite weak. 3. I recommended starting Flomax as long as patient's blood pressure allows. 4. Replace Trinh for now and try voiding trial in the next week or so. 5. Expect the patient's urinary control to return to baseline as her overall condition improves. Thank you for allowing us to participate in the care of this patient. <ELECTRONICALLY SIGNED> By: Jacques Villarreal MD 03/07/19 1719 1817 [id number] Villarreal MD /nt
[2019-03-07 20:00] VITALS: BP 132/79
[2019-03-08] VITALS: BP 149/74
[2019-03-08 03:54] VITALS: BP 159/78
[2019-03-08 08:00] VITALS: BP 156/84
[2019-03-08 11:55] VITALS: BP 152/72
[2019-03-08 15:44] VITALS: BP 130/78
[2019-03-08 20:00] VITALS: BP 147/80
[2019-03-09] VITALS (15 sets, daily range): BP systolic 121–161; BP diastolic 55–84
[2019-03-10] VITALS: BP 142/74
[2019-03-10 04:00] VITALS: BP 133/74
[2019-03-10 05:19] LABS: ABSOLUTE EOSINOPHILS 0.5 thou/uL (0.0-0.7); ABSOLUTE LYMPHOCYTES 1.4 thou/uL (0.8-5.3); ABSOLUTE MONOCYTES 0.7 thou/uL (0.0-1.2); ABSOLUTE NEUTROPHILS 4.3 thou/uL (1.6-8.1); BASOPHILS 0.5 %; EOSINOPHILS 7.2 %; HEMOGLOBIN 9.7 gm/dL (12.0-15.0); LYMPHOCYTES 20.4 %; MCH 30.9 pg (26.0-34.0); MCHC 34.6 g/dL (28.0-37.0); MCV 89.3 fL (80.0-100.0); MONOCYTES 10.1 %; MPV 7.3 fl. (7.2-11.1); NUCLEATED RBCS 0 /100WBC; PLATELET COUNT* 359 thou/uL (150-400); POLYS 61.8 %; RBC 3.14 mil/uL (4.20-5.00); RDW-CV 15.2 % (10.5-14.5); WBC 6.9 thou/uL (4.0-11.0)
[2019-03-10 05:47] LABS: CALCIUM 9.2 mg/dL (8.5-10.1); CREATININE 0.7 mg/dL (0.6-1.3); POTASSIUM 3.9 mmol/L (3.5-5.1)
[2019-03-10 08:18] VITALS: BP 146/78
--- NOTE | 2019-03-10 10:19 | CARD ---
[address] [address] CARDIAC CATH REPORT Name: JACINDA NGO Room: [address] IN [facility]#: [id number] Admission: 02/01/19 Attend Phys: Valentin Howe MD Discharge: Date of : 58 Report #: [id number] THIS REPORT FOR: //name// APPROVED REPORT Study performed: 03/09/2019 12:12:18 Patient Details Patient Status: In-Patient Room #: The patient is a 58 year-old female Event Personnel Jh Matthew Wrestling Coach, Luz Elena Sunshine RN, Eric MeekIS Scrub, Radha Majano RN Monitor Procedures Performed Art Access - R radial artery , Complete Heart Catheterization Indication Non-STEMI , Arrhythmia, Atrial fibrillation, Syncope Admission/Lab Medications/Medications given during procedure Platelet Aff. Inhib., Heparin Unfract. Procedure Narrative The patient was brought electively to the Cardiac Catheterization Laboratory and was prepped and draped in a sterile manner. The right wrist was infiltrated with 2% Lidocaine subcutaneous anesthesia. A Jerrica Radial Sheath [id number] sheath was inserted into the right radial artery. Coronary angiography was performed using coronary diagnostic catheters. The right coronary system was accessed and visualized with a JR4 5fr catheter. The left coronary system was accessed and visualized with a JL4 5fr catheter. The left ventricle was accessed and visualized with a PC: Angled Pig 5fr catheter. Left ventricular/Aortic Valve gradient assessed via catheter pullback. Left ventriculogram was performed in MILIAN projection. Closure device was deployed with a 6 Fr vascband. The patient tolerated the procedure well and there were no complications associated with the procedure. There was no hematoma. Intraoperative Conscious Sedation Sedation start time: 1330 Case end Time: 1347 Fluoro Time: 2.1 [place] [address] CARDIAC CATH REPORT Name: JACINDA NGO Room: [address] IN [facility].#: [id number] Admission: 02/01/19 Attend Phys: Valentin Howe MD Discharge: Date of : 58 Report #: [id number] Dose: DAP [id number] cGycm2 465 mGy Contrast Type and Amount: Visipaque 70 ml Coronary Angiography The patient's coronary anatomy is right dominant. [place] Artery Percent Stenosis Left Main: % Prox LAD: 0 % Mid/Distal LAD: 50 % Circumflex: % RCA: % Ramus: % Left Main: 0 % Prox LAD: % Mid/Distal LAD: % Circumflex: 0 % RCA: 40 % Ramus: % Left Ventriculography The left ventricular ejection fraction is estimated to be 60-65%. Left ventricular wall motion abnormalities are not present. There is no mitral insufficiency. Hemodynamics The aortic pressure is 136/76 mmHg with a mean of 101 mmHg. The left ventricular pressure is 129/10 mmHg with a mean of mmHg. The left ventricular end diastolic pressure is 15 mmHg. There was no gradient across the aortic valve upon pullback. Pullback from the left ventricle to the aorta revealed no gradient across the aortic valve. Conclusion 1. no significant cad 2. LVEF 60-65% Recommendations Aggressive Medical Therapy Medications Administered Clopidogrel <ELECTRONICALLY SIGNED> By: Jh Matthew MD, [facility] 03/10/19 1019 1019 [id number] Matthew MD, [facility] /INF
[2019-03-10 12:00] VITALS: BP 124/78
[2019-03-10 16:00] VITALS: BP 153/72
[2019-03-10 20:00] VITALS: BP 138/63
[2019-03-11 04:54] LABS: CALCIUM 8.9 mg/dL (8.5-10.1); CREATININE 0.5 mg/dL (0.6-1.3)
[2019-03-11 06:18] VITALS: BP 136/66
[2019-03-11 07:45] VITALS: BP 144/68
[2019-03-11 12:00] VITALS: BP 91/32
[2019-03-11 16:00] VITALS: BP 121/55
[2019-03-11 20:10] VITALS: BP 109/63
[2019-03-12 04:30] VITALS: BP 125/72
[2019-03-12 08:00] VITALS: BP 137/68
[2019-03-12 11:00] VITALS: BP 126/68
[2019-03-12 16:33] VITALS: BP 131/70
[2019-03-12 20:00] VITALS: BP 120/69
[2019-03-13] VITALS: BP 123/54
[2019-03-13 04:00] VITALS: BP 144/63
[2019-03-13 08:00] VITALS: BP 121/60
[2019-03-13 16:00] VITALS: BP 135/76
[2019-03-13 20:00] VITALS: BP 135/68
[2019-03-14] VITALS: BP 130/61
[2019-03-14 08:00] VITALS: BP 137/74
[2019-03-14 16:09] VITALS: BP 117/72
[2019-03-14 20:00] VITALS: BP 131/61
[2019-03-15] VITALS: BP 131/67
[2019-03-15 08:00] VITALS: BP 135/85
[2019-03-15 16:00] VITALS: BP 110/74
[2019-03-15 17:53] VITALS: BP 130/74
[2019-03-15 20:50] VITALS: BP 122/71
[2019-03-16 03:54] LABS: HEMATOCRIT 29.5 % (37.0-47.0); HEMOGLOBIN 9.8 gm/dL (12.0-15.0); MCH 29.5 pg (26.0-34.0); MCHC 33.2 g/dL (28.0-37.0); MCV 88.8 fL (80.0-100.0); MPV 6.7 fl. (7.2-11.1); RBC 3.32 mil/uL (4.20-5.00); RDW-CV 14.8 % (10.5-14.5); WBC 6.6 thou/uL (4.0-11.0)
[2019-03-16 04:11] LABS: ALBUMIN 2.7 g/dL (3.4-5.0); CREATININE 0.6 mg/dL (0.6-1.3); MAGNESIUM 1.3 mg/dL (1.8-2.4); POTASSIUM 3.9 mmol/L (3.5-5.1); TOTAL BILIRUBIN 0.4 mg/dL (<0.1-1.0); TOTAL PROTEIN 6.9 g/dL (6.4-8.2)
[2019-03-16 08:00] VITALS: BP 141/69
[2019-03-16 09:05] VITALS: BP 122/71
[2019-03-16] MEDS ORDERED: DILTIAZEM 24HR180 M1 PO (09:50)
[2019-03-16] MEDS ORDERED: FLOMAX0.4 MG PO (09:50)
[2019-03-16] MEDS ORDERED: PREVACID30 M2 PERTUBE (09:50)
[2019-03-16] MEDS ORDERED: ATORVASTATIN CA20 MG PERTUBE (09:50)
[2019-03-16] MEDS ORDERED: SORINE 80 MG TA80 M1 PO (09:50)
[2019-03-16] MEDS ORDERED: ASPIR 8181 MG PO (09:50)
[2019-03-16] MEDS ORDERED: IPRAT-ALBUT 0.5-3 ML INH (09:50)
[2019-03-16] MEDS ORDERED: ELIQUIS5 MG PO (09:50)
[2019-03-16] MEDS ORDERED: SYNTHROID100 MC1 PO (09:50)
== END 2019-03-16 10:56 | DRG 981 ==
LOC: M.ICU 10:39 → M.2W 02-01 16:11 → M.ICU 02-01 16:11 → M.2W 03-02 15:39 → M.ORTHSURG 03-15 10:13
PROVIDERS: Family Medicine; Internal Medicine; Internal Medicine Critical Care Medicine; ADMIT Family Medicine
DX: I63.9 Cerebral infarction, unspecified (principal); I21.4 Non-ST elevation (NSTEMI) myocardial infarction; I46.9 Cardiac arrest, cause unspecified; J96.21 Acute and chronic respiratory failure with hypoxia; N17.0 Acute kidney failure with tubular necrosis; J69.0 Pneumonitis due to inhalation of food and vomit; Z68.1 Body mass index [BMI] 19.9 or less, adult; D62 Acute posthemorrhagic anemia; K56.7 Ileus, unspecified; G93.1 Anoxic brain damage, not elsewhere classified; E66.9 Obesity, unspecified; I48.0 Paroxysmal atrial fibrillation; E03.9 Hypothyroidism, unspecified; F32.9 Major depressive disorder, single episode, unspecified; F41.9 Anxiety disorder, unspecified; J44.9 Chronic obstructive pulmonary disease, unspecified; E78.5 Hyperlipidemia, unspecified; N18.2 Chronic kidney disease, stage 2 (mild); D63.8 Anemia in other chronic diseases classified elsewhere; E83.42 Hypomagnesemia; I25.10 Atherosclerotic heart disease of native coronary artery without angina pectoris; E87.8 Other disorders of electrolyte and fluid balance, not elsewhere classified; G31.84 Mild cognitive impairment of uncertain or unknown etiology; B96.6 Bacteroides fragilis [B. fragilis] as the cause of diseases classified elsewhere; R33.9 Retention of urine, unspecified; S30.1XXA Contusion of abdominal wall, initial encounter; F10.21 Alcohol dependence, in remission; E87.6 Hypokalemia; Z93.0 Tracheostomy status; Z90.710 Acquired absence of both cervix and uterus; Z98.42 Cataract extraction status, left eye; Z98.41 Cataract extraction status, right eye; X58.XXXA Exposure to other specified factors, initial encounter; Y93.89 Activity, other specified; Y92.89 Other specified places as the place of occurrence of the external cause; Y99.8 Other external cause status; Z86.74 Personal history of sudden cardiac arrest; Z87.891 Personal history of nicotine dependence; Z79.82 Long term (current) use of aspirin; Z79.899 Other long term (current) drug therapy